=== PATIENT | female | born 1975 | race Asian ===

== ENCOUNTER 2024-11-14 06:32 | Day surgery (SDC) | payer BC, SELFPAY ==
--- NOTE | 2024-11-10 14:32 | PC.NURSE ---
called patient at [phone], no answer. Left message with sister Radha at [phone] who states patient knows to come in wednesday11/14/24 for procedure but is currently not able to answer phone. Radha will let patient know to register on Wednesday11/13/2024 anytime from [id number] and get labs done and come in Wednesday11/14/2024 at 0630.
[2024-11-13 12:06] LABS: Anion Gap 8 (7-16); BUN/Creatinine Ratio 18 Ratio (12-20); Blood Urea Nitrogen 11 mg/dL (9-23); Calcium 9.1 mg/dL (8.3-10.6); Carbon Dioxide 28.9 mMol/L (20.0-31.0); Chloride 103 mMol/L (98-107); Creatinine (Component) 0.6 mg/dL (0.6-1.3); Glucose 104 mg/dL (74-106); Osmolality,Calculated 278 (275-295); Potassium 4.6 mMol/L (3.4-5.1); Sodium 140 mMol/L (136-145); eGFR > 60 See Note
[2024-11-13 12:08] LABS: Partial Thromboplastin Time 26.4 Seconds (22.0-36.0); Prothrombin Time 10.7 Seconds (9.0-12.2)
[2024-11-13 12:10] LABS: Basophils # (Auto) 0.1 Thou/mm3 (0.0-0.2); Basophils % (Auto) 1 % (0-2.5); Eosinophils # (Auto) 0.8 Thou/mm3 (0.0-0.5); Eosinophils % (Auto) 8 % (0-10); Hematocrit 44.2 % (36.0-46.0); Hemoglobin 14.5 g/dL (12.0-16.0); Immature Granulocytes % (Auto) 0 % (0-0); Immature Granulocytes Auto 0.04 Thou/mm3 (0.00-0.00); Lymphocytes # (Auto) 3.2 Thou/mm3 (1.0-4.8); Lymphocytes % (Auto) 35 % (10-50); Mean Corpuscular HGB Conc 32.8 g/dl (31.0-37.0); Mean Corpuscular Hemoglobin 29.1 pg (25.0-35.0); Mean Corpuscular Volume 89 fL (80-100); Monocytes # (Auto) 0.8 Thou/mm3 (0.0-0.8); Monocytes % (Auto) 9 % (0-12); Neutrophils # (Auto) 4.3 Thou/mm3 (1.8-7.7); Neutrophils % (Auto) 47 % (37-80); Nucleated Red Blood Cell % 0 /100 WBC (0); Platelet Count 261 Thou/mm3 (140-440); RDW Standard Deviation 42.8 fL (36.4-46.3); Red Blood Count 4.99 Miln/mm3 (4.00-5.20); White Blood Count 9.1 Thou/mm3 (3.6-11.0)
[2024-11-13 12:20] VITALS: BMI 32.5
[2024-11-13 12:43] LABS: COVID-19 Antigen (In-House) Negative (Negative)
[2024-11-14] VITALS (12 sets, daily range): BP systolic 121–177; BP diastolic 84–114; PULSE 63–75; RESP 12–24; TEMP 36.6–36.8; O2SAT 93–97
[2024-11-14] MEDS: DIAZEPAM 5 MG TABLET PO (07:22)
--- NOTE | 2024-11-14 07:50 | ESOP_ITS ---
Cardiac Cath Procedure Procedure Narrative Date of the procedure 11/14/2024 Title of the procedure 1. Left heart catheterization 2. Left coronary angiogram 3. Right coronary angiogram 4. Left ventriculogram 5. Conscious sedation 6. Radiographic interpretation supervision 7. Ultrasound guidence for Right radial access 8.angioplasty and stent placement to distal RCA Indication for the procedure This is a 49-year-old female with hypertension hyperlipidemia Complains of recurrent chest pain Cardiolite scan was equivocal Cardiac calcium per angiogram recommended Procedure This is done in the cardiac lab under continuous electrocardiographic monitoring Intermittent blood pressure monitoring right radial arterial access obtained using modified Seldinger technique 6 [place] radial sheath was placed under ultrasound guidence TIG catheter was used for selective injection of the Left coronary artery TIG cather was used for selective injection of the Right coroanry artery TIG cather was used for LV gram Findings Hemodynamics Left ventricular systolic function is 55% Left ventricular end-diastolic pressure is 16 mmHg Gradient across the aortic valve is 0 mm gradient Coronary anatomy Right dominance Left main coronary artery is normal Left anterior descending artery is normal Diagonal vessel is normal Left circumflex artery is normal Obtuse marginal vessel is luminal regularities Right coronary artery is 90% lesion in the mid to distal RCA Posterior descending artery is normal Conclusion Significant lesion noted in the mid to distal RCA Recommendation Angioplasty and stent placement mid to distal RCA Angioplasty and stent placement of the RCA JR4 guiding catheter used to obtain coaxial access [employer] 50 wire was used to cross the lesion Predilatation was done with 3 x 20 mm balloon up to 14 pa[place] 4 x 33 mm stent was placed across the lesion and dilated up to 12 [place] At that time there was still residual lesion noted proximal to the stent A second stent 4 x 20 was placed across the lesion proximal to the first stent This was dilated up to 14 [place] Post angiogram reveals adequate expansion of the entire and the stent Conclusion Successful angioplasty and stent placement of mid to distal RCA
[2024-11-14] MEDS: SODIUM CHLORIDE 0.45 % 500 ML 300 ML IV (09:30)
== END 2024-11-14 12:42 | disposition home or self-care (01) ==
PROVIDERS: PCP Internal Medicine; Referring Provider Internal Medicine; Visit Provider Internal Medicine
PROC: (CPT 93458; principal; 2024-11-14 07:45)
DX: I25.118 Atherosclerotic heart disease of native coronary artery with other forms of angina pectoris (principal); E78.5 Hyperlipidemia, unspecified; I10 Essential (primary) hypertension; Z95.5 Presence of coronary angioplasty implant and graft
CPT/HCPCS: 93458; C9600; 36415; 80048; 85025; 85610; 85730; 87811; 99152; 99153; A4216; A4649; C1725; C1769; C1874; C1887; C1894; J0153; J0171; J0282; J0461; J0583; J1643; J2250; J2310; J2371; J3010; J3490; J7030; Q9967; A9270